=== PATIENT | female | born 1955 | race Caucasian/White ===

== ENCOUNTER → 2016-08-20 | Outpatient (CLI) | payer OTHER ==
--- NOTE | 2016-08-20 15:26 | US ---
EXAM DESCRIPTION: Thyroid CLINICAL HISTORY: 61 years, Female, THYROID NODULE COMPARISON: None. TECHNIQUE: Multiple real-time sonographic images were obtained of the thyroid. FINDINGS: The right lobe demonstrates small hypoechoic well-defined nodule measuring 1.1 x 0.7 x 0.8 cm in the lower portion. And a tiny cyst measuring 3 mm in the midpole. The left lobe demonstrates demonstrates a small heterogenous well-defined nodule measuring 4 mm in the upper pole The right lobe measures 3.7 cm in length by 1.8 x 1.8 cm. The left lobe measures 3.5 cm in length by 1.3 x 2.2 cm. And the isthmus measures four mm in thickness. Surrounding soft tissues are unremarkable. IMPRESSION: Small indeterminate nodules one each seen bilaterally. Recommend six month follow-up ultrasound many for the larger right nodule. Electronically signed by: Denis Haines MD 08/20/2016 3:25 PM CDT
== END | disposition home or self-care (01) ==
LOC: US 09:20
PROVIDERS: ATTEND Family Medicine
DX: E04.1 Nontoxic single thyroid nodule (principal)

== ENCOUNTER → 2017-02-25 | Outpatient (CLI) | payer BC | LOC: GMAL 10:19 | PROVIDERS: ATTEND Family Medicine | DX: Z00.00 Encounter for general adult medical examination without abnormal findings (principal) ==

== ENCOUNTER → 2017-02-27 | Outpatient (CLI) | payer BC ==
--- NOTE | 2017-02-28 11:10 | US ---
EXAM DESCRIPTION: Thyroid CLINICAL HISTORY: 61 years Female, NODULE COMPARISON: None. FINDINGS: The right thyroid lobe measures 5.0 x 1.8 x 1.9 cm. There is a round 1.3 cm hypoechoic and probably solid nodule in the mid right thyroid lobe. The nodule contains a few microcalcifications. Peripheral vascularity of this nodule and others was not assessed. The right thyroid lobe does not appear hyperemic. The thyroid isthmus is not thickened. There is an ovoid 3 x 7 mm solid hypoechoic nodule in the thyroid isthmus without internal calcification. The left thyroid lobe measures 4.0 x 1.4 x 2.3 cm. There is a 4 mm hypoechoic nodule in the mid left thyroid lobe which may present a complex cyst or solid nodule. The left thyroid lobe is not hyperemic. IMPRESSION: Tiny thyroid nodules as detailed above measuring up to 1.3 cm diameter in the right thyroid lobe. Based on their size and appearance, follow-up ultrasound in 9-12 months is recommended to document stability. Electronically signed by: Osei Resendiz MD 02/28/2017 11:08 AM CDT
--- NOTE | 2017-03-03 11:53 | MAM ---
EXAM DESCRIPTION: 3D Screening BILATERAL : Digital Mammography. CLINICAL HISTORY: 61 years Female SCREENING . No complaints. Remote family history of breast cancer. Hysterectomy. No HRT. Left breast biopsy. COMPARISON: 2-D screening bilateral study 06/28/2015. No prior reports available. TECHNIQUE: Bilateral CC and MLO projection full-field images, 3-D tomosynthesis digital mammographic technique. Also bilateral synthesized CC/ MLO full-field images. CAD not utilized. FINDINGS: The breast parenchymal density pattern is: Scattered areas of fibroglandular density. No skin thickening or nipple retraction bilateral solitary microcalcifications. Biopsy site marker lower inner quadrant of the anterior third of the left breast. Density adjacent to the marker is stable.. No focal, stellate mass or density, focal asymmetry , and no suspicious microcalcifications bilaterally. Stable mammograms compared to prior study, taking into account differences in mammographic technique IMPRESSION: BI-RADS CATEGORY: 2 - BENIGN FINDINGS. FOLLOW UP: Routine digital bilateral screening, one year interval from February 2017. Written communication explaining the IMPRESSION and follow-up, will be mailed to the patient and referring health care provider. According to the [employer], yearly mammograms are recommended starting at age 40 and continuing as long as a woman is in good health. Any breast change noted on a breast self-exam should be reported promptly to the patient's healthcare provider. Breast MRI is recommended for women with an approximately 20-25% or greater lifetime risk of breast cancer, including women with a strong family history of breast or ovarian cancer and women who have been treated for Hodgkin's disease. A negative mammographic report should not delay tissue diagnosis in patients with significant clinical history or physical findings. Extremely dense breast tissue limits the sensitivity of digital mammography. Electronically signed by: Antony Car MD 03/03/2017 11:52 AM CDT
== END | disposition home or self-care (01) ==
LOC: US 09:16
PROVIDERS: ATTEND Family Medicine
DX: Z12.31 Encounter for screening mammogram for malignant neoplasm of breast (principal); R22.9 Localized swelling, mass and lump, unspecified
CPT/HCPCS: 76536; 77063; G0202

== ENCOUNTER → 2017-11-14 | Outpatient (CLI) | payer BC | LOC: GMAL 12:33 | PROVIDERS: ATTEND Family Medicine | DX: D51.3 Other dietary vitamin B12 deficiency anemia (principal); E34.9 Endocrine disorder, unspecified; R53.83 Other fatigue; R73.9 Hyperglycemia, unspecified ==

== ENCOUNTER → 2018-05-18 | Outpatient (CLI) | payer OTHER ==
--- NOTE | 2018-05-18 16:00 | US ---
US THYROID CLINICAL STATEMENT: THYROID NODULE. No Palpable mass. No prior thyroid surgery or medical therapy. COMPARISON: Thyroid ultrasound 02/27/2017. FINDINGS: Size right thyroid lobe: 3.9 x 1.8 x 1.5 cm Size left thyroid lobe: 3.9 x 1.4 x 1.1 cm Size isthmus: 0.3 cm Estimated total number of nodules greater than or equal to 1 cm: 1. Heterogeneity of both lobes and the isthmus. Nodule 1: Size: 1.3 x 1.2 x 1.1 cm Location: Right Lower Composition: solid or almost completely solid: 2 points Echogenicity: hypoechoic: 2 points Shape: wider than tall: 0 points Margins: smooth: 0 points Echogenic foci: none: 0 points ACR Total Points: 4; ACR TI-RADS risk category: TR4 - moderately suspicious nodule. Nodule 2: Size: 0.3 x 0.2 x 0.2 cm Location: Right Mid Composition: solid or almost completely solid: 2 points Echogenicity: hypoechoic: 2 points Shape: wider than tall: 0 points Margins: smooth: 0 points Echogenic foci: none: 0 points ACR Total Points: 4; ACR TI-RADS risk category: TR4 - moderately suspicious nodule. Nodule 3: Size: 0.4 x 0.4 x 0.3 cm Location: Left Upper Composition: solid or almost completely solid: 2 points Echogenicity: hypoechoic: 2 points Shape: wider than tall: 0 points Margins: smooth: 0 points Echogenic foci: none: 0 points ACR Total Points: 4; ACR TI-RADS risk category: TR4 - moderately suspicious nodule. Soft tissue around the thyroid gland shows no evidence of dominant solid mass or cyst. No parenchymal edema or large calcification. No overlying skin changes. Normal vascularity. IMPRESSION: 1. Nodule 1: ACR TI-RADS 2017 Category TR4. Stable since the prior study. Recommend: Follow-up ultrasound in 1 year.. Recommendations based upon [employer] Best Practice recommendations and ACR TI-RADS 2017 guidelines. Please see below*. 2. Nodule 2: ACR TI-RADS 2017 Category TR4. Stable since the prior study. Recommend: No further follow-up. 3. Nodule 3: ACR TI-RADS 2017 Category TR4. Stable since the prior study. Recommend: No further follow-up. 4. Soft tissue around the thyroid gland is unremarkable. *ACR TI-RADS 2017 Recommendations: TR1: No FNA or follow up TR2: No FNA or follow up TR3: FNA if >/= 2.5 cm, follow up if 1.5 - 2.4 cm in 1, 3, and 5 years TR4: FNA if >/= 1.5 cm, follow up if 1.0 - 1.4 cm in 1, 2, 3, and 5 years TR5: FNA if >/= 1.0 cm, follow up if 0.5 - 0.9 cm every year for 5 years ACR TI-RADS recommends that no more than two nodules with the highest ACR TI-RADS total point should be biopsied and no more than four nodules should be followed. Electronically signed by: Antony Car MD 05/18/2018 3:59 PM [facility]
--- NOTE | 2018-05-19 08:47 | MAM ---
EXAM DESCRIPTION: 3D Screening BILATERAL : Digital Mammography. CLINICAL HISTORY: 63 years Female SCREEN no complaints. No personal history of breast cancer. Remote family history of breast cancer. Childbirth. Postmenopausal. Taking HRT 5 or more years ago. Prior left breast biopsy. Lifetime risk of developing breast cancer (Tyrer-Cuzick model)(%): 12.0. COMPARISON: Bilateral screening digital breast tomosynthesis 02/27/2017. TECHNIQUE: Bilateral CC and MLO projection full-field images, digital tomosynthesis mammographic technique. Bilateral digital 2-D full-field MLO images. CAD not available for tomosynthesis or 2-D images. FINDINGS: The breast parenchymal density pattern is: Scattered areas of fibroglandular density. No skin thickening or nipple retraction. Bilateral solitary microcalcifications. Biopsy site marker anterior lower inner quadrant left breast, and unremarkable. No new focal, stellate mass or density, focal asymmetry , and no suspicious microcalcifications bilaterally. Stable mammograms compared to prior study. IMPRESSION: Benign exam. BIRAD CATEGORY: 2 BENIGN FINDINGS. RECOMMENDATIONS: FOLLOW UP: Routine digital bilateral mammographic screening, one year interval from May 2018. Written communication explaining the IMPRESSION and follow-up, will be mailed to the patient and referring health care provider. According to the [employer], yearly mammograms are recommended starting at age 40 and continuing as long as a woman is in good health. Any breast change noted on a breast self-exam should be reported promptly to the patient's healthcare provider. Breast MRI is recommended for women with an approximately 20-25% or greater lifetime risk of breast cancer, including women with a strong family history of breast or ovarian cancer and women who have been treated for Hodgkin's disease. A negative mammographic report should not delay tissue diagnosis in patients with significant clinical history or physical findings. Extremely dense breast tissue limits the sensitivity of digital mammography. Electronically signed by: Antony Car MD 05/19/2018 8:45 AM [employer] [place]
== END ==
LOC: US 10:52
PROVIDERS: ATTEND Family Medicine
DX: Z12.31 Encounter for screening mammogram for malignant neoplasm of breast (principal); E04.1 Nontoxic single thyroid nodule

== ENCOUNTER → 2018-11-20 | Outpatient (CLI) | payer OTHER | LOC: GMAL 10:24 | PROVIDERS: ATTEND Family Medicine | DX: D51.3 Other dietary vitamin B12 deficiency anemia (principal); R53.83 Other fatigue; E55.9 Vitamin D deficiency, unspecified ==

== ENCOUNTER 2019-01-02 08:51 | Emergency (ER) | payer OTHER ==
[2019-01-02 13:10] VITALS: BP 129/79; TEMP 98.6; O2SAT 97
== END 2019-01-02 13:10 | disposition home or self-care (01) ==
LOC: ER 08:51
DX: R55 Syncope and collapse (principal); E83.42 Hypomagnesemia; N39.0 Urinary tract infection, site not specified; E11.9 Type 2 diabetes mellitus without complications; M06.9 Rheumatoid arthritis, unspecified; Z79.899 Other long term (current) drug therapy; Z79.84 Long term (current) use of oral hypoglycemic drugs; Z88.0 Allergy status to penicillin
CPT/HCPCS: 36415; 70450; 71045; 80048; 80076; 81001; 82550; 82553; 83605; 84443; 84484; 85025; 85610; 85730; 87077; 87086; 87186; 93005; J1956; J3475; J7030

== ENCOUNTER 2019-03-04 17:32 | Emergency (ER) | payer OTHER ==
[2019-03-04 17:42] VITALS: TEMP 98.1
[2019-03-04] MEDS ORDERED: SODIUM CHLORIDE 0.9% 1000ML 1,000 ML IVS ONE (17:51)
[2019-03-04] MEDS ORDERED: ONDANSETRON INJ 4 MG/2 ML VIAL IV ONE (17:51)
--- NOTE | 2019-03-04 17:54 | ED.PDOC ---
History of Present Illness - General Chief Complaint: General Time Seen by Provider: 03/04/19 17:46 - History of Present Illness Initial Comments: Pt is a 63 y.o. F w/ pmh of DM, HTN, HLD who presents c/o nausea and vomting. Says she has been feeling nauseated the past two days and has not been able to eat because of the nausea. No diarrhea. No abdominal pain or chest pain. No known sick contacts or recent travel. She went to urgent care and was referred to the ER due to concern for dehydration. Allergies/Adverse Reactions: Allergies Penicillins Allergy (Verified 01/02/19 09:13) Rash Home Medications: Ambulatory Orders Amlodipine/Valsartan/Hydr 10-160-12.5 mg 1 tablet PO DAILY 09/22/18 Denosumab [Prolia] 1 ml SC Q6M 09/22/18 Esomeprazole Magnesium [Nexium] 20 mg PO BEDTIME 09/22/18 Folic Acid 1 mg PO DAILY 09/22/18 Metformin HCl [Metformin Hydrochloride] 500 mg PO DAILY 09/22/18 Methotrexate (Antirheumatic) [Rasuvo] 0.35 ml INJ WKLY 09/22/18 Nabumetone 1 tablet PO BID 09/22/18 Pravastatin Sodium 1 tablet PO BEDTIME 09/22/18 Tocilizumab [Actemra] 0.9 ml INJ WKLY 09/22/18 Acetaminophen W/ Codeine [Tylenol/Codeine #4 300-60 mg] 1 ea PO Q4HR PRN #20 tab 01/02/19 levoFLOXacin [Levaquin] 500 mg PO DAILY 10 Days #10 tab 01/02/19 Ondansetron Tab [Zofran Tab] 4 mg PO Q6HRS PRN 5 Days #10 tab 03/04/19 Review of Systems - Review of Systems Constitutional: States: no symptoms reported EENTM: States: no symptoms reported Respiratory: States: no symptoms reported Cardiology: States: no symptoms reported Gastrointestinal/Abdominal: States: nausea, vomiting Musculoskeletal: States: no symptoms reported Skin: States: no symptoms reported Neurological: States: no symptoms reported Endocrine: States: no symptoms reported Hematologic/Lymphatic: States: no symptoms reported All other Systems: Reviewed and Negative Past Medical History (General) - Patient Medical History Hx Stroke: No Hx of COPD: No Hx Cardiac Disorders: No Hx Congestive Heart Failure: No Hx Hypertension: Yes Hx Diabetes: Yes - FSBS 121 Hx Cancer: No Hx MRSA: No - Vaccination History Hx Influenza Vaccination: Yes Hx Pneumococcal Vaccination: Yes - Social History Hx Tobacco Use: No Hx Alcohol Use: No Hx Substance Use: No Hx Substance Use Treatment: No Hx Depression: No Hx Physical Abuse: No Hx Emotional Abuse: No - Female History Patient : No Family Medical History - Family History Mother Family History: Unknown Living Status: Unknown Physical Exam - Physical Exam General Appearance: Alert, Comfortable Neck: full range of motion, supple Respiratory: lungs clear, normal breath sounds Cardiovascular/Chest: regular rate, rhythm, no edema Gastrointestinal/Abdominal: non tender, soft Extremity: non-tender, normal inspection Neurologic: no motor/sensory deficits, alert, normal mood/affect Skin Exam: normal color, warm/dry Lymphatic: no adenopathy Progress - Progress Progress: 03/04/19 17:55 MDM pt w/ h/o DM, HTN, HLD here w/ N/V. Well appearing. Likely viral. Plan for labs, EKG, reassess. Diff dx: enteritis, dehydration, electrolyte abnormalities. - Results/Orders Results/Orders: 03/04/19 17:51 Sodium Chloride 0.9% 1000ML [Ns 1000 ml] 1,000 ml IVS ONCE 03/04/19 18:00 EKG STAT Laboratory Results - last 24 hr 03/04/19 03/04/19 17:45 17:45 WBC 7.6 RBC 4.73 Hgb 15.0 Hct 44.7 MCV 94.5 MCH 31.8 H MCHC 33.6 RDW 15.7 H Plt Count 272 MPV 10.2 Absolute Neuts (auto) 5.50 Absolute Lymphs (auto) 1.20 Absolute Monos (auto) 0.80 Absolute Eos (auto) 0.00 Absolute Basos (auto) 0.10 Neutrophils % 72.9 Lymphocytes % 15.6 L Monocytes % 10.1 H Eosinophils % 0.2 L Basophils % 1.2 Sodium 139 Potassium 4.0 Chloride 106 Carbon Dioxide 20 L Anion Gap 17.0 BUN 18 Creatinine 0.62 BUN/Creatinine Ratio 29.0 H Random Glucose 122 H Serum Osmolality 280.7 Calcium 8.8 Total Bilirubin 1.3 H AST 46 H ALT 36 Alkaline Phosphatase 40 L Serum Total Protein 7.7 Albumin 3.9 Globulin 3.8 H Albumin/Globulin Ratio 1.0 L - EKG/XRAY/CT Comments: NSR @ 90, normal axis/intervals, no STEMI Departure - Departure Clinical Impression: Nausea & vomiting Qualifiers: Vomiting type: unspecified Vomiting Intractability: non-intractable Qualified Code(s): R11.2 - Nausea with vomiting, unspecified Disposition: Discharge to Home or Self Care Condition: Good Departure Forms: ED Discharge - Pt. Copy, Patient Portal Self Enrollment Instructions: Nausea and Vomiting, Adult (DC) Diet: bland diet Referrals: Denis Colmenares III, MD [Primary Care Provider] - 1-2 Weeks Prescriptions: Ondansetron Tab [Zofran Tab] 4 mg PO Q6HRS PRN 5 Days #10 tab PRN Reason: Nausea Home Medications: Ambulatory Orders Amlodipine/Valsartan/Hydr 10-160-12.5 mg 1 tablet PO DAILY 09/22/18 Denosumab [Prolia] 1 ml SC Q6M 09/22/18 Esomeprazole Magnesium [Nexium] 20 mg PO BEDTIME 09/22/18 Folic Acid 1 mg PO DAILY 09/22/18 Metformin HCl [Metformin Hydrochloride] 500 mg PO DAILY 09/22/18 Methotrexate (Antirheumatic) [Rasuvo] 0.35 ml INJ WKLY 09/22/18 Nabumetone 1 tablet PO BID 09/22/18 Pravastatin Sodium 1 tablet PO BEDTIME 09/22/18 Tocilizumab [Actemra] 0.9 ml INJ WKLY 09/22/18 Acetaminophen W/ Codeine [Tylenol/Codeine #4 300-60 mg] 1 ea PO Q4HR PRN #20 tab 01/02/19 levoFLOXacin [Levaquin] 500 mg PO DAILY 10 Days #10 tab 01/02/19 Ondansetron Tab [Zofran Tab] 4 mg PO Q6HRS PRN 5 Days #10 tab 03/04/19
[2019-03-04 18:38] VITALS: BP 136/118; O2SAT 95
== END 2019-03-04 18:48 | disposition home or self-care (01) ==
LOC: ER 17:32
DX: R11.2 Nausea with vomiting, unspecified (principal); E11.9 Type 2 diabetes mellitus without complications; I10 Essential (primary) hypertension; E78.00 Pure hypercholesterolemia, unspecified; Z88.0 Allergy status to penicillin; Z79.84 Long term (current) use of oral hypoglycemic drugs; Z79.899 Other long term (current) drug therapy
CPT/HCPCS: 80053; 85025; 93005; J2405; J7030

== ENCOUNTER → 2019-06-16 | Outpatient (CLI) | payer OTHER ==
--- NOTE | 2019-06-17 14:51 | US ---
US THYROID CLINICAL STATEMENT:64 years Female NONTOXIC SINGLE THYROID NODULE. COMPARISON: None TECHNIQUE: Transcutaneous scanning, grayscale and Doppler modes. FINDINGS: Size right thyroid lobe: 4.0 x 1.9 x 1.7 cm Size left thyroid lobe: 3.6 x 2.0 x 1.0 cm Size isthmus: 0.56 cm Estimated total number of nodules greater than or equal to 1 cm: 1. Heterogeneous bilaterally. No simple cyst or large calcifications. Nodule 1: Size: 1.8 x 1.5 x 1.4 cm Location: Right Lower Composition: mixed cystic and solid: 1 point Echogenicity: hypoechoic: 2 points Shape: wider than tall: 0 points Margins: smooth: 0 points Echogenic foci: none: 0 points ACR Total Points: 3; ACR TI-RADS risk category: TR3 - mildly suspicious nodule. No dominant solid mass, no distinct cyst, no large calcifications in the soft tissues bilaterally. IMPRESSION: 1. Nodule 1: ACR TI-RADS 2017 Category TR3. Recommend: Follow-up ultrasound in 1 year.. Recommendations based upon [employer] Best Practice recommendations and ACR TI-RADS 2017 guidelines. Please see below*. 2. Soft tissue around the thyroid gland is unremarkable. *ACR TI-RADS 2017 Recommendations for imaging follow-up of nodules: TR1: No FNA or follow up TR2: No FNA or follow up TR3: FNA if >/= 2.5 cm, follow up if 1.5 - 2.4 cm in 1, 3, and 5 years TR4: FNA if >/= 1.5 cm, follow up if 1.0 - 1.4 cm in 1, 2, 3, and 5 years TR5: FNA if >/= 1.0 cm, follow up if 0.5 - 0.9 cm every year for 5 years ACR TI-RADS recommends that no more than two nodules with the highest ACR TI-RADS total point should be biopsied and no more than four nodules should be followed. These recommendations do not apply to patients with increased risk for thyroid cancer or patients with symptomatic thyroid disease. Electronically signed by: Antony Car MD 06/17/2019 2:50 PM [employer]
--- NOTE | 2019-06-18 15:59 | MAM ---
EXAM DESCRIPTION: 3D Screening BILATERAL : Digital Mammography. CLINICAL HISTORY: 64 years Female ANNUAL SCREENING . No complaints. No personal history of breast cancer. Remote family history of breast cancer. Menarche age 7. Childbirth age 25. Menopause age 48. HRT 5 or more years ago. Benign left breast cyst aspiration and biopsy. Lifetime risk of developing breast cancer (Tyrer-Cuzick model)(%): 11.5. COMPARISON: Bilateral screening digital breast tomosynthesis May 2018 and February 2017. TECHNIQUE: Bilateral CC and MLO projection full-field images, digital tomosynthesis mammographic technique. Bilateral digital 2-D full-field MLO images. CAD available for 2-D images. FINDINGS: The breast parenchymal density pattern is: Scattered areas of fibroglandular density. No skin thickening or nipple retraction. Solitary microcalcifications. Bilateral skin mole markers. Stable central intramammary lymph node right. No new focal, stellate mass or density, focal asymmetry , and no suspicious microcalcifications bilaterally. Stable mammograms compared to prior study. IMPRESSION: Benign exam. BIRAD CATEGORY: 2 BENIGN FINDINGS. RECOMMENDATIONS: FOLLOW UP: Routine digital bilateral mammographic screening, one year interval from June 2019. Written communication explaining the IMPRESSION and follow-up, will be mailed to the patient and referring health care provider. According to the [employer], yearly mammograms are recommended starting at age 40 and continuing as long as a woman is in good health. Any breast change noted on a breast self-exam should be reported promptly to the patient's healthcare provider. Breast MRI is recommended for women with an approximately 20-25% or greater lifetime risk of breast cancer, including women with a strong family history of breast or ovarian cancer and women who have been treated for Hodgkin's disease. A negative mammographic report should not delay tissue diagnosis in patients with significant clinical history or physical findings. Extremely dense breast tissue limits the sensitivity of digital mammography. Electronically signed by: Antony Car MD 06/18/2019 3:58 PM [employer]LECT[employer] REPA[employer] SUPERVISOR
== END ==
LOC: US 09:50
PROVIDERS: ATTEND Family Medicine
DX: Z12.31 Encounter for screening mammogram for malignant neoplasm of breast (principal); E04.1 Nontoxic single thyroid nodule

== ENCOUNTER → 2020-05-08 | Outpatient (CLI) | payer MEDICARE | LOC: GMAL 14:40 | PROVIDERS: ATTEND Family Medicine | DX: N30.00 Acute cystitis without hematuria (principal) ==

== ENCOUNTER → 2020-06-29 | Outpatient (CLI) | payer MEDICARE ==
--- NOTE | 2020-06-29 15:41 | MRI ---
EXAM DESCRIPTION: Brain w/wo Contrast: Magnetic Resonance Imaging. CLINICAL HISTORY: 65 years Female AGE RELATED COGNITIVE DECLINE COMPARISON: None. TECHNIQUE: Multiplanar, high-field MRI, multiple conventional sequences, without and with Dotarem gadolinium IV contrast, 1 mL per 5 kg bodyweight. No adverse reactions. Multiple axial diffusion sequences. FINDINGS: Bilateral multifocal and confluent hyperintense FLAIR and T2-weighted signal in the periventricular white matter and starks-white matter junctions of the cerebral hemispheres. Also involving the white matter abutting the frontal and occipital horns of the lateral ventricles in the bilateral centrum semiovale. Hypointense on T1 sequence. Relative sparing of the temporal lobes. No hemorrhage, no cerebral edema, no mass-effect. No abnormal contrast enhancement. Normal signal in the bilateral basal ganglia. Normal contrast enhancement. Normal signal in the brainstem and cerebellar hemispheres. Normal contrast enhancement. Concordance of the diffusion and non-diffusion sequences with no evidence of acute or subacute infarction. Cortical sulci, ventricles, and other CSF spaces, and the subdural spaces are minimally prominent for patient's age. No effacement or displacement. No midline shift. No extra-axial hemorrhage. Normal contrast enhancement. Normal flow signal void in the major vessels of the solomon Nunez, and the venous sinuses. IACs are symmetric bilaterally. No fluid signal in the bilateral mastoid air cells. No mass effect in the bilateral Cerebellopontine angles. Normal contrast enhancement. Pituitary gland occupies most of the sella. Normal contrast enhancement. Base of the cerebellar tonsils is above the level of the foramen magnum. No periosteal thickening involving most of the paranasal sinuses. Fluid in the right sphenoid air cell with minimal enhancement of the barrientos. Bilateral dmitri bullosa in the middle turbinates.. The bony calvarium is intact. IMPRESSION: 1. Abnormal white matter signal in the periventricular white matter extending superior to the bilateral centrum semiovale. Also involving the bilateral subcortical white matter. Relative sparing of the temporal lobes. No hemorrhage, no cerebral edema, no mass-effect. No abnormal contrast enhancement. . Most likely secondary to cerebral microvascular disease. Too extensive for migraine headaches, inflammation, or vasculitis. Too Advanced for age related white matter changes. 2. Normal noncontrast MR perfusion study with no evidence of significant ischemia, or acute or subacute infarction. 3. Chronic paranasal sinusitis. Possible acute disease involving the left sphenoid air cell. Bilateral dmitri bullosa in the middle turbinates. Electronically signed by: Antony Car MD 06/29/2020 3:39 PM CARTOON ANIMATOR
== END ==
LOC: MRI 09:12
PROVIDERS: ATTEND Family Medicine
DX: R41.81 Age-related cognitive decline (principal); R90.82 White matter disease, unspecified; G93.9 Disorder of brain, unspecified; J32.9 Chronic sinusitis, unspecified; J34.89 Other specified disorders of nose and nasal sinuses